=== PATIENT | male | born 1985 | race Caucasian/White ===

== ENCOUNTER 2023-05-06 10:45 | Inpatient (IN) | payer OTHER ==
[2023-05-06 11:15] VITALS: BMI 23.6
[2023-05-06] MEDS ORDERED: NICOTINE POLACRILEX 2 MG GUM BUC PRN (12:00)
[2023-05-06] MEDS ORDERED: NALOXONE HCL (KLOXXADO) 8 MG SPRAY NS PRN (12:00)
[2023-05-06] MEDS ORDERED: IBUPROFEN 400 MG TABLET (FP) PO PRN (12:00)
[2023-05-06] MEDS ORDERED: MAGNESIUM HYDROX 2400MG/30ML ORAL SUSPENSION 30 ML CUP PO PRN (12:00)
[2023-05-06] MEDS ORDERED: ACETAMINOPHEN 325 MG TABLET (FP) PO PRN (12:00)
[2023-05-06] MEDS ORDERED: POLYETHYLENE GLYCOL (HEALTHYLAX) 3350 17 GM PACKET PO PRN (12:00)
[2023-05-06] MEDS ORDERED: BENZOCAINE/MENTHOL (CHLORASEPTIC ) LOZENGE MM PRN (12:00)
[2023-05-06] MEDS ORDERED: NALOXONE HCL 0.4 MG/ML VIAL IM PRN (12:00)
[2023-05-06] MEDS ORDERED: BISMUTH SUBSALICYLATE 262 MG/15 ML BTL PO PRN (12:00)
[2023-05-06] MEDS ORDERED: MAG HYDROX/AL HYDROX/SIMETH 30 ML UNIT-DOSE CUP PO PRN (12:00)
[2023-05-06] MEDS ORDERED: BENZONATATE 200 MG CAPSULE PO PRN (12:00)
[2023-05-06] MEDS ORDERED: guaiFENesin 600 MG TABLET.ER (FP) PO PRN (12:00)
[2023-05-06] MEDS ORDERED: LOPERAMIDE HCL 2 MG CAPSULE PO PRN (12:00)
[2023-05-06] MEDS ORDERED: P-EPHED 60MG/TRIPROLIDI 2.5MG TABLET PO PRN (12:00)
[2023-05-06] MEDS ORDERED: IBUPROFEN 600 MG TABLET (FP) PO ONE (12:12)
[2023-05-06] MEDS ORDERED: METHOCARBAMOL 500 MG TABLET ONE (12:12)
[2023-05-06] MEDS ORDERED: methaDONE HCL 10 MG TABLET (FOR DETOX USE ONLY) ONE (12:12)
[2023-05-06] MEDS ORDERED: DICYCLOMINE HCL 10 MG CAPSULE ONE (12:12)
[2023-05-06] MEDS: methaDONE HCL 10 MG TABLET (FOR DETOX USE ONLY) PO ONE (12:16)
[2023-05-06] MEDS: DICYCLOMINE HCL 10 MG CAPSULE PO PRN (12:17)
[2023-05-06] MEDS: METHOCARBAMOL 500 MG TABLET PO PRN (12:17)
[2023-05-06] MEDS: IBUPROFEN 600 MG TABLET (FP) PO PRN (12:17)
[2023-05-06] MEDS: ONDANSETRON *ODT* 4 MG TABLET SL PRN (12:26)
[2023-05-06] MEDS: cloNIDine HCL 0.1 MG TABLET PO PRN (22:27)
[2023-05-06] MEDS: THIAMINE HCL 100 MG TABLET (FP) PO SCH (22:27)
[2023-05-06] MEDS: MELATONIN 5 MG TABLETS PO SCH (22:27)
[2023-05-07] MEDS: PRENATAL VITAMINS W/ FOLIC ACID TABLET (FP) PO SCH (09:12)
[2023-05-07 09:17] VITALS: BP 135/78; PULSE 78; RESP 18; TEMP 97.8
[2023-05-07 13:16] LABS: HEMATOCRIT 38.8 % (35.4-49); HEMOGLOBIN 13.1 GM/dL (11.7-16.9); MCH 27.7 pg (25.7-33.7); MCHC 33.7 g/dl (32.0-35.9); MEAN CELL VOLUME 82.2 fl (80-96); PLATELET COUNT 288 10^3/uL (134-434); RBC 4.72 M/mm3 (4.00-5.60); RDW 14.4 % (11.9-15.9); WHITE BLOOD COUNT 3.3 K/mm3 (4.0-10.0)
[2023-05-07 13:27] LABS: POTASSIUM 3.9 mmol/L (3.5-5.1)
[2023-05-07 13:31] LABS: CALCIUM 9.7 mg/dL (8.5-10.1)
[2023-05-07 13:32] LABS: ALBUMIN 3.6 g/dl (3.4-5.0)
[2023-05-07 13:35] LABS: BLOOD UREA NITROGEN 13.2 mg/dL (7-18); CREATININE 0.6 mg/dL (0.55-1.3)
[2023-05-07 13:37] LABS: BILIRUBIN,TOTAL 0.4 mg/dL (0.2-1); TOT PROT 7.7 g/dl (6.4-8.2)
[2023-05-08] MEDS ORDERED: methaDONE HCL 10 MG TABLET (FOR DETOX USE ONLY) PO ONE (10:00)
[2023-05-10] MEDS ORDERED: methaDONE HCL 10 MG TABLET (FOR DETOX USE ONLY) PO ONE (10:00)
== END 2023-05-07 13:20 | disposition left against medical advice (07) | DRG 770 ==
LOC: YASAS 10:45 → Y6N 12:04
PROVIDERS: ADMIT Allergy & Immunology; ATTEND Surgery
PROC: HZ2ZZZZ Detoxification Services for Substance Abuse Treatment (ICD-10-PCS; principal; 2023-05-06)
DX: F11.23 Opioid dependence with withdrawal (principal); F14.20 Cocaine dependence, uncomplicated; F17.210 Nicotine dependence, cigarettes, uncomplicated; Z86.19 Personal history of other infectious and parasitic diseases; Z56.0 Unemployment, unspecified; Z59.00 Homelessness unspecified
CPT/HCPCS: 36415; 80053; 80305; 85027; 86780; 87635; 87811; 93005; 93010; Q0162